=== PATIENT | female | born 1975 | race Caucasian/White ===

== ENCOUNTER 2016-07-21 10:01 | Emergency (ER) | payer BC ==
[2016-07-21 10:17] VITALS: BP 135/76
--- NOTE | 2016-07-21 10:32 | UC ---
Palpitation/Dysrhythmia HP - HPI Summary HPI Summary: ONSET OF HEART PALPITATIONS 1AM THIS MORNING WHILE AT WORK. 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 WAS DRINKING A HOT CHOCOLATE. NO UNUSUAL STRENUOUS ACTIVITY. NO EXCESSIVE CAFFEINE INTAKE. HAD A SIMILAR EPISODE A FEW YEARS AGO WHILE ON PREDNISONE BUT NONE PRIOR. HAS HAD A FEW EPISODES OVER THE PAST SEVERAL WEEKS BUT SX RESOLVE BY MORNING. NO NEW MEDS OR SUPPLEMENTS. DOES ADMIT TO NOT GETTING MUCH SLEEP SHE SHOULD. DENIES CP, SOB, NAUSEA, SWEATS BUT FEELING OF HEART SKIPPING BEATS HAS BEEN PERSISTENT SINCE ONSET THIS MORNING. - History of Current Complaint Chief Complaint: UCCardiac Stated Complaint: HEART SKIPPINGS BEATS Time Seen by Provider: 07/21/16 10:05 Hx Obtained From: Patient Hx Last Menstrual Period: two weeks ago Onset/Duration: Sudden Onset, Lasting Hours, Still Present Timing: Constant Severity Initially: Moderate Severity Currently: Moderate Pain Intensity: 0 Pain Scale Used: 0-10 Numeric Character: Skipped Beats Aggravating Factor(s): Nothing Alleviating Factor(s): Nothing Associated Signs & Symptoms: Negative: Lightheadedness, Dizzy, Syncope, Chest Pain, Shortness of Breath, Diaphoresis, Nausea, Vomiting - Allergy/Home Medications Allergies/Adverse Reactions: Allergies Allergy/AdvReac Type Severity Reaction Status Date / Time No Known Allergies Allergy Verified 10/06/14 09:58 Home Medications: Home Medications Multiple Vitamins W/ Minerals [Multivitamin Adults] 1 tab PO 07/21/16 [History] PMH/Surg Hx/FS Hx/Imm Hx Endocrine History Of: Denies: Diabetes Cardiovascular History Of: Denies: Hypertension Respiratory History Of: Reports: Asthma - meds for control GI/ History Of: Reports: Gastroesophageal Reflux - Surgical History Surgical History: Yes Surgery Procedure, Year, and Place: right foot bunion; wisdom teeth - Family History Known Family History: Positive: Hypertension, Other - arthritis, father with cirrhosis due to drinking alcohol Negative: Cardiac Disease, Blood Disorder - Social History Alcohol Use: Rare Substance Use Type: None Smoking Status (MU): Never Smoked Tobacco - Immunization History Most Recent Tetanus Shot: 11/2010 Review of Systems Constitutional: Negative Respiratory: Negative Cardiovascular: Palpitations Gastrointestinal: Negative Genitourinary: Negative All Other Systems Reviewed And Are Negative: Yes Physical Exam Triage Information Reviewed: Yes Appearance: Well-Appearing, No Pain Distress, Well-Nourished Vital Signs: Initial Vital Signs Temp 98.4 F 07/21/16 10:09 Pulse 81 07/21/16 10:09 Resp 16 07/21/16 10:09 BP 135/76 07/21/16 10:09 Pulse Ox 98 07/21/16 10:09 Vital Signs Reviewed: Yes Eyes: Positive: Conjunctiva Clear ENT: Positive: Hearing grossly normal, Pharynx normal, TMs normal Neck: Positive: Supple, Nontender, No Lymphadenopathy Respiratory Exam: Normal Cardiovascular: Positive: Pulses Normal, Other: - ECTOPIC BEATS Abdomen Description: Positive: Soft Musculoskeletal: Positive: No Edema Neurological: Positive: Alert Psychological: Positive: Age Appropriate Behavior Skin: Negative: rashes Diagnostics - EKG Cardiac Rate: NL - 88 BPM Cardiac Rhythm: Sinus: Normal Ectopy: PVCs ST Segment: Normal Palpitations Course/Dx - Differential Dx/Diagnosis Differential Diagnosis/HQI/PQRI: Cardiomyopathy, Hypokalemia, Mitral Valve Prolapse, Other - ELECTROLYTE ABNORMALITY, THYROID DISORDER, METABOLIC DISORDER , ANEMIA, ANXIETY Provider Diagnoses: PALPITATIONS - Physician Notifications Discussed Patient Care With: DR. MARIEE Time Discussed With Above Provider: 10:41 - [place] [facility] [place] [facility] [place] Discharge - Discharge Plan Condition: Stable Disposition: AGAINST MEDICAL ADVICE Referrals: Taqueria Hsieh MD [Primary Care Provider] -
== END 2016-07-21 10:45 | disposition left against medical advice (07) ==
LOC: UCEAST 10:01
DX: R00.2 Palpitations (principal)
CPT/HCPCS: 93005; 99212; G0463

== ENCOUNTER 2016-07-21 11:23 | Emergency (ER) | payer BC ==
--- NOTE | 2016-07-21 12:46 | RAD ---
INDICATION: Palpitations. COMPARISON: Comparison is made with a prior chest x-ray study from December 21, 2015. TECHNIQUE: A portable view of the chest was obtained. FINDINGS: Cardiac and mediastinal contours appear to be within normal limits. The lungs are clear. No pleural effusion is seen. IMPRESSION: NO EVIDENCE FOR ACUTE DISEASE.
[2016-07-21 13:11] LABS: Hematocrit 38 % (35-47); Hemoglobin 12.7 g/dl (12.0-16.0); Mean Corpuscular HGB Conc 34 g/dl (31-36); Mean Corpuscular Hemoglobin 29 pg (27-31); Mean Corpuscular Volume 87 fL (80-97); Mean Platelet Volume 9 um3 (7.4-10.4); Red Blood Count 4.31 10^6/ul (4.0-5.4); Red Cell Distribution Width 13 % (10.5-15); White Blood Count 9.3 10^3/ul (3.5-10.8)
[2016-07-21 13:32] LABS: Potassium 4.1 mmol/L (3.5-5.0)
[2016-07-21 13:33] LABS: BUN/Creatinine Ratio 17.5 (8-20); Calcium 8.9 mg/dL (8.6-10.3); EGFR African American 151.1 (>60); EGFR Non-African American 117.5 (>60); Globulin 3.2 g/dL (2-4); Total Bilirubin 0.3 mg/dL (0.2-1.0); Total Protein 7.2 g/dL (6.4-8.9)
[2016-07-21 14:04] LABS: T4 6.25 g/dL (6.09-12.23)
[2016-07-21 14:05] LABS: TSH (Thyroid Stimulating Horm) 1.85 mcIU/mL (0.34-5.60)
--- NOTE | 2016-07-21 14:09 | ED ---
Romain Huerta Adam, scribed for Umer Alejo MD on 07/21/16 at 1206 . Palpitations / Dysrhythmia - HPI Summary HPI Summary: Pt is a 40 year old female presenting with palpitations. She states that she can feel her heart beating in her chest and it feels like it is skipping beats. The symptoms set on at 01:00 this morning. The pt was at work until 02:00 and she states that the palpitations started shortly after she drank a hot chocolate which she does not drink often. She has had palpitations 1x in the past when she was put on steroids. She denies being on any new medications or using any new perfumes or products. She went to [facility] this morning and was sent to the ED for a more complete work-up. Pt denies CP, SOB, dizziness , and pre-syncope. PMHx of asthma but she does not take regular medications. No tobacco, occasional alcohol, 2 bottles of caffeinated soda per day. FMHx of alcoholism, liver disease, HTN. - History of Current Complaint Chief Complaint: EDDysrhythmPalp Time Seen by Provider: 07/21/16 11:52 Hx Obtained From: Patient Onset/Duration: Sudden Onset, Lasting Hours, Still Present Timing: Constant Severity Initially: Moderate Severity Currently: Moderate Character: Skipped Beats Aggravating: Nothing Alleviating: Nothing Associated Signs & Symptoms: Negative - Allergy/Home Medications Allergies/Adverse Reactions: Allergies Allergy/AdvReac Type Severity Reaction Status Date / Time No Known Allergies Allergy Verified 07/21/16 11:25 PMH/Surg Hx/FS Hx/Imm Hx Endocrine/Hematology History: Denies: Hx Diabetes Cardiovascular History: Denies: Hx Hypertension Respiratory History: Reports: Hx Asthma - meds for control - Surgical History Surgery Procedure, Year, and Place: right foot bunion; wisdom teeth Infectious Disease History: No Infectious Disease History: Denies: History Other Infectious Disease, Traveled Outside the [place] in Last 30 Days - Family History Known Family History: Positive: Hypertension, Other - Arthritis, father with cirrhosis due to drinking alcohol Negative: Cardiac Disease, Blood Disorder - Social History Occupation: Employed Full-time Lives: With Family - Alcohol Use: Rare Hx Substance Use: No Substance Use Type: Reports: None Hx Tobacco Use: No Smoking Status (MU): Never Smoked Tobacco Review of Systems Positive: Palpitations. Negative: Chest Pain Negative: Shortness Of Breath Negative: Syncope All Other Systems Reviewed And Are Negative: Yes Physical Exam - Summary Physical Exam Summary: VITAL SIGNS: Reviewed. GENERAL: Patient is an overweight female who is lying comfortable in the stretcher. Patient is not in any acute respiratory distress. HEAD AND FACE: No signs of trauma. No ecchymosis, hematomas or skull depressions. No sinus tenderness. EYES: PERRLA, EOMI x 2, No injected conjunctiva, no nystagmus. EARS: Hearing grossly intact. Ear canals and tympanic membranes are within normal limits. MOUTH: Oropharynx within normal limits. NECK: Supple, trachea is midline, no adenopathy, no JVD, no carotid bruit, no c- spine tenderness, neck with full ROM. CHEST: Symmetric, no tenderness at palpation LUNGS: Clear to auscultation bilaterally. No wheezing or crackles. CVS: Regular rate and rhythm, S1 and S2 present, no murmurs or gallops appreciated. ABDOMEN: Soft, non-tender. No signs of distention. No rebound no guarding, and no masses palpated. Bowel sounds are normal. EXTREMITIES: FROM in all major joints, no edema, no cyanosis or clubbing. NEURO: Alert and oriented x 3. No acute neurological deficits. Speech is normal and follows commands. SKIN: Dry and warm Triage Information Reviewed: Yes Vital Signs On Initial Exam: Initial Vitals Temp Pulse Resp BP Pulse Ox 99.2 F 76 16 127/81 98 07/21/16 11:25 07/21/16 11:25 07/21/16 11:25 07/21/16 11:25 07/21/16 11:25 Vital Signs Reviewed: Yes Diagnostics - Vital Signs Vital Signs Temp Pulse Resp BP Pulse Ox 07/21/16 11:25 99.2 F 76 16 127/81 98 - Laboratory Lab Results: Lab Results 07/21/16 07/21/16 Range/Units 13:04 13:04 WBC 9.3 (3.5-10.8) 10^3/ul RBC 4.31 (4.0-5.4) 10^6/ul Hgb 12.7 (12.0-16.0) g/dl Hct 38 (35-47) % MCV 87 (80-97) fL MCH 29 (27-31) pg MCHC 34 (31-36) g/dl RDW 13 (10.5-15) % Plt Count 211 (150-450) 10^3/ul MPV 9 (7.4-10.4) um3 Neut % (Auto) 69.1 (38-83) % Lymph % (Auto) 22.1 L (25-47) % [place] % (Auto) 6.3 (1-9) % Eos % (Auto) 1.8 (0-6) % Baso % (Auto) 0.7 (0-2) % Absolute Neuts (auto) 6.5 (1.5-7.7) 10^3/ul Absolute Lymphs (auto) 2.1 (1.0-4.8) 10^3/ul Absolute Monos (auto) 0.6 (0-0.8) 10^3/ul Absolute Eos (auto) 0.2 (0-0.6) 10^3/ul Absolute Basos (auto) 0.1 (0-0.2) 10^3/ul Absolute Nucleated RBC 0 10^3/ul Nucleated RBC % 0 Sodium 135 (133-145) mmol/L Potassium 4.1 (3.5-5.0) mmol/L Chloride 103 (101-111) mmol/L Carbon Dioxide 28 (22-32) mmol/L Anion Gap 4 (2-11) mmol/L BUN 10 (6-24) mg/dL Creatinine 0.57 (0.51-0.95) mg/dL Est GFR ( Amer) 151.1 (>60) Est GFR (Non-Af Amer) 117.5 (>60) BUN/Creatinine Ratio 17.5 (8-20) Glucose 107 H (70-100) mg/dL Calcium 8.9 (8.6-10.3) mg/dL Total Bilirubin 0.30 (0.2-1.0) mg/dL AST 12 L (13-39) U/L ALT 15 (7-52) U/L Alkaline Phosphatase 56 (34-104) U/L CK-MB (CK-2) 1.2 (0.6-6.3) ng/mL Troponin I 0.00 (<0.04) ng/mL Total Protein 7.2 (6.4-8.9) g/dL Albumin 4.0 (3.2-5.2) g/dL Globulin 3.2 (2-4) g/dL Albumin/Globulin Ratio 1.3 (1-3) TSH Pending Thyroxine (T4) Pending Result Diagrams: 07/21/16 13:04 07/21/16 13:04 Lab Statement: Any lab studies that have been ordered have been reviewed, and results considered in the medical decision making process. - Radiology CXR Radiology Interpretation Completed By: Radiologist - IMPRESSION: NO EVIDENCE FOR ACUTE DISEASE. - EKG 11:28 Cardiac Rate: NL - 79 BPM EKG Rhythm: Sinus Rhythm - Normal Ectopy: PVCs - Frequent EKG Interpretation: No ST elevations - Additional Comments Diagnostic Additional Comments: Troponin I - 0.00 Course/Dx - Course Course Of Treatment: Pt is a 40 year old female presenting with palpitations. She states that she can feel her heart beating in her chest and it feels like it is skipping beats. The symptoms set on at 01:00 this morning. The pt was at work until 02:00 and she states that the palpitations started shortly after she drank a hot chocolate which she does not drink often. She has had palpitations 1x in the past when she was put on steroids. She denies being on any new medications or using any new perfumes or products. She went to [facility] this morning and was sent to the ED for a more complete work-up. Pt denies CP, SOB, dizziness, and pre-syncope. PMHx of asthma but she does not take regular medications. No tobacco, occasional alcohol, 2 bottles of caffeinated soda per day. FMHx of alcoholism, liver disease, HTN. BW is WNL except for glucose of 107. EKG shows NSR with occasional PVC's without ST elevations. CXR shows no acute pathology. She continues to be asymptomatic, she denies any CP, SOB, or dizziness with palpitations. She was recommended to decrease caffeine intake and follow up with cardiology. She was also recommended to return to ED if she develops any of the above symptoms or worsening of palpitations. She is hemodynamically stable and A&Ox3. - Diagnoses Differential Diagnosis/HQI/PQRI: Positive: Hypokalemia, Panic Disorder, Paroxymal SVT, V-Tach Provider Diagnoses: Palpitations, PVCs (premature ventricular contractions) Discharge - Discharge Plan Condition: Stable Disposition: HOME Patient Education Materials: Palpitations (ED), Premature Ventricular Contractions (ED) Referrals: Lilliana Flanagan MD [Medical Doctor] - Additional Instructions: Follow up with Dr. Flanagan (Cardiology). The documentation as recorded by the Romain eastman Adam accurately reflects the service I personally performed and the decisions made by , Umer Alejo MD.
[2016-07-21 14:10] VITALS: BP 115/74
[2016-07-21 14:22] LABS: Urine Bilirubin Negative (Negative); Urine Glucose Negative (Negative); Urine Nitrite Negative (Negative)
== END 2016-07-21 14:06 | disposition home or self-care (01) ==
LOC: ED 11:23
DX: R00.2 Palpitations (principal); I49.3 Ventricular premature depolarization
CPT/HCPCS: 36415; 71010; 80053; 81003; 82553; 84436; 84443; 84484; 85025; 93005; 99282

== ENCOUNTER 2018-07-01 18:29 | Emergency (ER) | payer BC ==
[2018-07-01 18:34] VITALS: BP 142/92
--- NOTE | 2018-07-01 18:57 | UC ---
Dizzy HPI HPI Summary: 2 DAYS AGO HAD 2 EPISODES OF DIZZINESS LASTING SEVERAL SECONDS. HAS FELT "OFF" SINCE THEN. THIS AFTERNOON HAD AN EPISODE OF DIZZINESS ACCOMPANIED BY RINGING IN THE RIGHT EAR WHICH IS NOW RESOLVED. HAD NAUSEA. NO FEVER OR URI SX. NO PREVIOUS SIMILAR EPISODES. SX WORSE WITH MVMT AND POSITION CHANGE AND RESOLVE WHEN STILL. - History Of Current Complaint Chief Complaint: UCGeneralIllness Stated Complaint: DIZZY Time Seen by Provider: 07/01/18 18:35 Hx Obtained From: Patient, Family/Flow Floor Attendant - MOM Hx Last Menstrual Period: one week ago Onset/Duration: Sudden Onset, Lasting Days, Still Present Timing: Constant Severity Initially: Moderate Severity Currently: Mild Pain Intensity: 0 Pain Scale Used: 0-10 Numeric Character: Head Spinning, Dizzy Aggravating Factor(s): Position Change, Change In Head Position Alleviating Factor(s): Rest Associated Signs And Symptoms: Positive: Nausea, Tinnitus. Negative: Vomiting, Chest Pain, SOB, Palpitations, Unsteady Gait, Visual Changes - Allergies/Home Medications Allergies/Adverse Reactions: Allergies Allergy/AdvReac Type Severity Reaction Status Date / Time No Known Allergies Allergy Verified 07/01/18 18:34 PMH/Surg Hx/FS Hx/Imm Hx Respiratory History: Asthma - Surgical History Surgical History: Yes Surgery Procedure, Year, and Place: right foot bunion; wisdom teeth - Family History Known Family History: Positive: Hypertension, Other - Arthritis, father with cirrhosis due to drinking alcohol Negative: Cardiac Disease, Blood Disorder - Social History Alcohol Use: Rare Substance Use Type: None Smoking Status (MU): Never Smoked Tobacco - Immunization History Most Recent Tetanus Shot: 11/2010 Review of Systems All Other Systems Reviewed And Are Negative: Yes Constitutional: Positive: Negative ENT: Positive: Other - TINNITIS - NOW RESOLVED Respiratory: Positive: Negative Cardiovascular: Positive: Negative Gastrointestinal: Positive: Negative Physical Exam Triage Information Reviewed: Yes Appearance: Well-Appearing, No Pain Distress, Well-Nourished Vital Signs: Initial Vital Signs Temp 97.8 F 07/01/18 18:31 Pulse 80 07/01/18 18:31 Resp 12 07/01/18 18:31 BP 142/92 07/01/18 18:31 Pulse Ox 98 07/01/18 18:31 Vital Signs Reviewed: Yes Eyes: Positive: Conjunctiva Clear ENT: Positive: Hearing grossly normal, Pharynx normal, TMs normal, Other - DIZZY WITH HEAD MVMT. POS [place]PI[place] Neck: Positive: Supple, Nontender, No Lymphadenopathy Respiratory Exam: Normal Cardiovascular Exam: Normal Abdomen Description: Positive: Soft Musculoskeletal: Positive: No Edema Neurological: Positive: Alert Psychological: Positive: Age Appropriate Behavior Skin: Negative: Rashes Diagnostics - EKG Cardiac Rate: NL - 71BPM Cardiac Rhythm: Sinus: Normal Ectopy: None ST Segment: Normal Dizzy Course/Dx - Differential Dx/Diagnosis Provider Diagnosis: BPPV (benign paroxysmal positional vertigo) Discharge - Sign-Out/Discharge Documenting (check all that apply): Patient Departure All imaging exams completed and their final reports reviewed: No Studies - Discharge Plan Condition: Stable Disposition: HOME Prescriptions: Meclizine HCl [Verticalm] 25 mg PO TID PRN #30 tablet PRN Reason: Dizziness Patient Education Materials: Benign Paroxysmal Positional Vertigo (ED) Forms: *Work Release Referrals: Taqueria Hsieh MD [Primary Care Provider] - Additional Instructions: Benign paroxysmal positional vertigo (BPPV) - sometimes called benign positional vertigo, positional vertigo, postural vertigo, or simply vertigo, is probably the most commonly recognized cause of vertigo. It is most commonly attributed to calcium debris within the posterior semicircular canal (inner ear) , known as canalithiasis. Classically, patients describe a brief spinning sensation brought on when turning in bed or tilting the head backward to look up. The dizziness is quite brief, usually seconds, but less commonly it can last minutes. It may be severe enough to halt activity for this duration. Patients may experience nausea but rarely vomit. Ear pain, hearing loss, and tinnitus are absent. The diagnosis of BPPV is suggested by its historical description and confirmed by [place]-Hallpike maneuver. The natural history of BPPV is one of repeated, brief vertiginous episodes that are predictably provoked. BPPV can be treated by canalith repositioning maneuvers. HANDOUTS PROVIDED FOR LAUREL RODRIGUEZ AND KIMBER TANNERS GO TO THE ER WITHOUT FAIL IF YOU DEVELOP WORSENING DIZZINESS, SHORTNESS OF BREATH, CHEST PAIN, NAUSEA/VOMITING, FEVER OR ANY OTHER CONCERNING SYMPTOMS. - Billing Disposition and Condition Condition: STABLE Disposition: Home
[2018-07-01] MEDS ORDERED: Meclizine TAB* 12.5 MG PO ONE ×2 (19:10→19:22)
== END 2018-07-01 19:33 | disposition home or self-care (01) ==
LOC: UCEAST 18:29
DX: H81.10 Benign paroxysmal vertigo, unspecified ear (principal); J45.909 Unspecified asthma, uncomplicated
CPT/HCPCS: 93005; 99212; A9270-GY; G0463

== ENCOUNTER 2019-05-20 11:12 | Emergency (ER) | payer BC ==
[2019-05-20 12:28] VITALS: BP 126/70
--- NOTE | 2019-05-20 13:05 | UC ---
Throat Pain/Nasal Ti HPI - HPI Summary HPI Summary: 43-year-old female comes in with a chief complaint sore throat. A mild sore throat for couple of days overnight the throat pain got a lot worse. Her tonsils are also enlarged. No difficulty breathing. It does hurt to swallow. Pain is less when she's not tried to swallow. Cold food also decreases the pain. Her daughter recently had strep throat. No complaint of any cough or chest congestion. - History of Current Complaint Chief Complaint: UCGeneralIllness Stated Complaint: SORE THROAT EAR PAIN Time Seen by Provider: 05/20/19 12:39 Hx Last Menstrual Period: 05/19/19 Pain Intensity: 10 - Allergies/Home Medications Allergies/Adverse Reactions: Allergies Allergy/AdvReac Type Severity Reaction Status Date / Time No Known Allergies Allergy Verified 05/20/19 12:28 Home Medications: Home Medications Albuterol HFA INHALER* [Ventolin HFA Inhaler*] 2 puff INH Q4H PRN 05/20/19 [ History Confirmed 05/20/19] Montelukast Sodium TAB* [Singulair TAB*] 10 mg PO DAILY 05/20/19 [History Confirmed 05/20/19] Norethindrone AC-Eth Estradiol [Loestrin 06/11- 1-20 mg-Mcg] 1 tab PO DAILY WITH MEAL 05/20/19 [History Confirmed 05/20/19] PMH/Surg Hx/FS Hx/Imm Hx Previously Healthy: Yes Respiratory History: Asthma - Surgical History Surgical History: Yes Surgery Procedure, Year, and Place: right foot bunion; wisdom teeth - Family History Known Family History: Positive: Hypertension, Other - Arthritis, father with cirrhosis due to drinking alcohol Negative: Cardiac Disease, Blood Disorder - Social History Alcohol Use: Occasionally Substance Use Type: None Smoking Status (MU): Never Smoked Tobacco - Immunization History Most Recent Tetanus Shot: 11/2010 Review of Systems All Other Systems Reviewed And Are Negative: Yes Constitutional: Positive: Other - SEE HPI Skin: Positive: Negative Eyes: Positive: Negative ENT: Positive: Sore Throat, Nasal Discharge Respiratory: Positive: Negative Cardiovascular: Positive: Negative Gastrointestinal: Positive: Negative Motor: Positive: Negative Neurovascular: Positive: Negative Musculoskeletal: Positive: Negative Neurological: Positive: Negative Psychological: Positive: Negative Is Patient Immunocompromised?: No Physical Exam Triage Information Reviewed: Yes Appearance: No Pain Distress, Well-Nourished, Ill-Appearing - MILD Vital Signs: Initial Vital Signs Temp 100.1 F 05/20/19 12:25 Pulse 86 05/20/19 12:25 Resp 18 05/20/19 12:25 BP 126/70 05/20/19 12:25 Pulse Ox 99 05/20/19 12:25 Vital Signs Reviewed: Yes Eye Exam: Normal Eyes: Positive: Conjunctiva Clear ENT: Positive: Pharyngeal erythema, Nasal congestion, Nasal drainage, TMs normal , Tonsillar swelling - 3= B/L, Uvula midline - No peritonsillar abscess apparent at this time on exam. Voice is normal.. Negative: Muffled voice, Hoarse voice Neck: Positive: Supple Respiratory: Positive: Lungs clear, Normal breath sounds, No respiratory distress Cardiovascular: Positive: RRR Musculoskeletal: Positive: Strength Intact, ROM Intact Neurological: Positive: Alert, Muscle Tone Normal Psychological: Positive: Normal Response To Family, Age Appropriate Behavior Skin Exam: Normal Throat Pain/Nasal Course/Dx - Differential Dx/Diagnosis Provider Diagnosis: Strep pharyngitis Discharge ED - Sign-Out/Discharge Documenting (check all that apply): Patient Departure All imaging exams completed and their final reports reviewed: No Studies - Discharge Plan Condition: Stable Disposition: HOME Prescriptions: Amoxicillin PO (*) [Amoxicillin 875 MG (*)] 875 mg PO BID #20 tab Patient Education Materials: Strep Throat (ED) Referrals: Taqueria Hsieh MD [Primary Care Provider] - Additional Instructions: FOLLOW UP WITH YOUR DOCTOR IF NOT COMPLETELY IMPROVED. GET REEVALUATED SOONER IF NOT IMPROVED OR WORSE OR ANY QUESTIONS OR CONCERNS. - Billing Disposition and Condition Condition: STABLE Disposition: Home
== END 2019-05-20 13:11 | disposition home or self-care (01) ==
LOC: UCEAST 11:12
DX: J02.0 Streptococcal pharyngitis (principal); J45.909 Unspecified asthma, uncomplicated; Z79.899 Other long term (current) drug therapy
CPT/HCPCS: 87651; 99212; G0463